=== PATIENT | female | born 1950 | race Caucasian/White ===

== ENCOUNTER 2018-09-30 06:37 | Day surgery (SDC) | payer BC, MEDICARE ==
[2018-09-30] MEDS ORDERED: Midazolam 1 MG/ML 2 ML SDV IV ONE (06:38)
[2018-09-30] MEDS ORDERED: Propofol 200 MG/20 ML SDV IV ONE (06:38)
[2018-09-30] MEDS ORDERED: Sodium Chloride 0.9% 10 ML Syringe FLUSH PRN (06:45)
[2018-09-30] MEDS ORDERED: Lactated Ringers 1,000 ML IV SCH (06:45)
--- NOTE | 2018-09-30 08:15 | PCM.OPNOTE ---
- General Post-Op/Procedure Note Date of Surgery/Procedure: 09/30/18 Operative Procedure(s): c scope with bx Findings: diverticulum of ascending colon solitary polyp transverse colon Pre Op Diagnosis: screening Post-Op Diagnosis: diverticulum of ascending colon solitary. polyp transverse colon Anesthesia Technique: MAC Primary Surgeon: Lucien Gonzalez Anesthesia Provider: Manuela Rubin Pathology: transverse colon polyp Complications: None Condition: Good Free Text/Narrative:: see dictation
--- NOTE | 2018-09-30 08:23 | OR ---
DATE OF OPERATION: 09/30/2018 SURGEON: Lucien Gonzalez MD PROCEDURE PERFORMED: Colonoscopy with cold forceps biopsy. PREOPERATIVE DIAGNOSIS: Need for colon cancer screening. POSTOPERATIVE DIAGNOSIS: Diverticulum of the ascending colon and questionable polyp of the transverse colon. INDICATIONS FOR PROCEDURE: This is a 67-year-old white female, who presents for screening colonoscopy, it was offered and accepted same. DESCRIPTION OF OPERATION: After an excellent IV sedation was administered, digital rectal exam was performed. No marked abnormality was noted. Flexible colonoscope was inserted and advanced to the cecum. Prep was excellent. The following findings were noted. Ascending colon, just distal to the ileocecal valve, a single diverticulum was noted, otherwise unremarkable. Transverse colon: At the distal transverse colon, there was a patch that appeared to be consistent with early adenomatous changes. This had measured approximately 3 mm in size, biopsied with the cold biopsy forceps and submitted. Descending colon was unremarkable. Sigmoid was unremarkable. Rectum and anus, unremarkable. Colon was deflated as the scope was removed. The patient tolerated the procedure well and was taken to recovery in good condition. Results by letter. /[id number] /MODL
== END 2018-09-30 09:18 | disposition home or self-care (01) ==
LOC: FB.SDS 06:37
PROVIDERS: ATTEND Surgery
DX: Z12.11 Encounter for screening for malignant neoplasm of colon (principal); D12.3 Benign neoplasm of transverse colon; K57.30 Diverticulosis of large intestine without perforation or abscess without bleeding; I10 Essential (primary) hypertension; E78.00 Pure hypercholesterolemia, unspecified; C34.91 Malignant neoplasm of unspecified part of right bronchus or lung; M19.90 Unspecified osteoarthritis, unspecified site; Z88.0 Allergy status to penicillin; Z88.5 Allergy status to narcotic agent; Z88.8 Allergy status to other drugs, medicaments and biological substances; Z91.048 Other nonmedicinal substance allergy status; Z87.891 Personal history of nicotine dependence; Z79.82 Long term (current) use of aspirin; Z79.899 Other long term (current) drug therapy
CPT/HCPCS: 00812; 45380; 88305; J2250; J2704; J7120

== ENCOUNTER 2024-04-24 09:53 | Emergency (ER) | payer BC, MEDICARE ==
[2024-04-24] MEDS: amLODIPine 5 MG Tab PO ONE (10:13)
[2024-04-24] MEDS: cloNIDine 0.1 MG Tab PO ONE (10:14)
== END 2024-04-24 11:04 | disposition home or self-care (01) ==
LOC: FB.ED 09:53
DX: I16.9 Hypertensive crisis, unspecified (principal); I10 Essential (primary) hypertension; E78.00 Pure hypercholesterolemia, unspecified; Z86.73 Personal history of transient ischemic attack (TIA), and cerebral infarction without residual deficits; Z90.710 Acquired absence of both cervix and uterus; Z88.0 Allergy status to penicillin; Z88.8 Allergy status to other drugs, medicaments and biological substances; Z88.5 Allergy status to narcotic agent; Z91.041 Radiographic dye allergy status; Z91.040 Latex allergy status; Z79.51 Long term (current) use of inhaled steroids; Z79.82 Long term (current) use of aspirin; Z79.899 Other long term (current) drug therapy
CPT/HCPCS: 99283; 99284; A9270-GY

== ENCOUNTER 2024-11-29 17:29 | Emergency (ER) | payer MEDICARE ==
[2024-11-29 17:59] LABS: BLOOD UREA NITROGEN,BUN 44 mg/dL (7-18); CARBON DIOXIDE,CO2 30 mmol/L (21-32); CHLORIDE,CL 98 mmol/L (100-110); CREATININE 2.5 mg/dL (0.55-1.02); EST CRCL DRUG DOSING (CG) 11.03 mL/min; ESTIMATED GFR 20 mL/min (>60); GLUCOSE RANDOM 97 mg/dL (80-116); POTASSIUM,K 5.7 mmol/L (3.5-5.3); SODIUM,NA 134 mmol/L (135-145)
[2024-11-29] MEDS: Sodium Chloride 0.9% 10 ML Syringe FLUSH PRN (18:22)
[2024-11-29] MEDS: Albuterol 0.083% 2.5 MG/3 ML Neb Soln NEB ONE (18:22)
[2024-11-29 19:17] LABS: BLOOD UREA NITROGEN,BUN 40 mg/dL (7-18); CARBON DIOXIDE,CO2 30 mmol/L (21-32); CHLORIDE,CL 103 mmol/L (100-110); EST CRCL DRUG DOSING (CG) 12.53 mL/min; ESTIMATED GFR 23 mL/min (>60); GLUCOSE RANDOM 84 mg/dL (80-116); POTASSIUM,K 5.2 mmol/L (3.5-5.3); SODIUM,NA 137 mmol/L (135-145)
[2024-11-29 19:19] LABS: CREATININE 2.2 mg/dL (0.55-1.02)
== END 2024-11-29 19:50 | disposition home or self-care (01) ==
LOC: FB.ED 17:29
DX: E87.5 Hyperkalemia (principal); E86.0 Dehydration; N17.9 Acute kidney failure, unspecified; I10 Essential (primary) hypertension; E78.00 Pure hypercholesterolemia, unspecified; J44.9 Chronic obstructive pulmonary disease, unspecified; Z90.710 Acquired absence of both cervix and uterus; Z87.891 Personal history of nicotine dependence; Z88.0 Allergy status to penicillin; Z88.5 Allergy status to narcotic agent; Z88.8 Allergy status to other drugs, medicaments and biological substances; Z91.040 Latex allergy status; Z79.51 Long term (current) use of inhaled steroids; Z79.82 Long term (current) use of aspirin; Z79.899 Other long term (current) drug therapy
CPT/HCPCS: 36415; 80048; 93010; 94640; 96374; 99284; 99285; A9270; J7030

== ENCOUNTER 2025-05-29 01:53 | Emergency (ER) | payer MEDICARE ==
[2025-05-29] MEDS ORDERED: Propofol 200 MG/20 ML SDV IV ONE (01:54)
[2025-05-29] MEDS ORDERED: Rocuronium 100 MG/10 ML MDV IV ONE (01:54)
[2025-05-29] MEDS ORDERED: Midazolam 1 MG/ML 2 ML SDV IV ONE (01:54)
[2025-05-29] MEDS ORDERED: fentaNYL 100 MCG/2 ML SDV IV ONE (01:54)
[2025-05-29 02:57] LABS: MEAN PLATELET VOLUME 7.3 fL (7.1-12.4); PLATELET COUNT,PLT 255 x10(3)uL (151-488); RED BLOOD CELL COUNT 3.74 x10(6)uL (3.60-5.20); RED CELL DISTRIBUTION WIDTH 15.9 % (12.3-16.5); WHITE BLOOD CELL COUNT,WBC 10.0 x10-3/uL (3.0-10.3)
[2025-05-29 03:05] LABS: BLOOD UREA NITROGEN,BUN 30 mg/dL (7-18); CARBON DIOXIDE,CO2 32 mmol/L (21-32); CHLORIDE,CL 97 mmol/L (100-110); CREATININE 1.6 mg/dL (0.55-1.02); ESTIMATED GFR 34 mL/min (>60); GLUCOSE RANDOM 149 mg/dL (80-116); POTASSIUM,K 4.7 mmol/L (3.5-5.3); SODIUM,NA 139 mmol/L (135-145)
[2025-05-29 03:11] LABS: A/G RATIO 0.7; ASPARTATE AMNIOTRANSFERASE,AST 24 IU/L (5-25); BILIRUBIN TOTAL 0.3 mg/dL (0.1-1.3); PROTEIN TOTAL,TP 6.8 g/dL (6.0-8.0)
[2025-05-29 03:12] LABS: ALANINE AMINOTRANSFERASE,ALT < 6 U/L (12-36)
[2025-05-29 03:36] LABS: LYMPHOCYTES PERCENT MAN 3 % (13-37); MONOCYTES PERCENT MAN 9 % (4-12); SEG NEUTROPHILS PERCENT MAN 88 % (46-82)
[2025-05-29 03:41] LABS: INFLUENZA A NAA NEGATIVE (NEGATIVE); INFLUENZA B NAA NEGATIVE (NEGATIVE); RESPIRATORY SYNCYTIAL VIR NAA NEGATIVE (NEGATIVE)
[2025-05-29 03:49] LABS: CORONAVIRUS COVID-19 NAA NEGATIVE (NEGATIVE)
[2025-05-29] MEDS: Naloxone 0.4 MG/ML SDV ONE (05:12)
[2025-05-29] MEDS: Naloxone 0.4 MG/ML SDV IVPUSH ONE (05:15)
[2025-05-29 05:42] LABS: BASE EXCESS ARTERIAL,POC -6 mmol/L (-2 - 3+); HCO3 ARTERIAL,POC 23 mmol/L (21-28); O2 SATURATION ARTERIAL,POC 96.5 % (94-98); PO2 ARTERIAL,POC 109 mmHg (83-108)
[2025-05-29 06:14] LABS: BLOOD UREA NITROGEN,BUN 28 mg/dL (7-18); CARBON DIOXIDE,CO2 27 mmol/L (21-32); CHLORIDE,CL 103 mmol/L (100-110); CREATININE 1.6 mg/dL (0.55-1.02); ESTIMATED GFR 34 mL/min (>60); GLUCOSE RANDOM 155 mg/dL (80-116); POTASSIUM,K 4.8 mmol/L (3.5-5.3); SODIUM,NA 138 mmol/L (135-145)
[2025-05-29 06:20] LABS: BASE EXCESS VENOUS,POC -4 mmol/L (-2 - 3+); PCO2 VENOUS,POC 63 mmHg (41-51); PH VENOUS,POC 7.21 pH Units (7.32-7.43)
[2025-05-29] MEDS ORDERED: Sodium Chloride 0.9% 10 ML Syringe FLUSH PRN (07:40)
[2025-05-29 08:15] LABS: BASE EXCESS VENOUS,POC -4 mmol/L (-2 - 3+); PCO2 VENOUS,POC 66 mmHg (41-51); PH VENOUS,POC 7.19 pH Units (7.32-7.43)
[2025-05-29 08:15] LABS: GLUCOSE,URINE NORMAL (NORMAL); OCCULT BLOOD,URINE NEGATIVE (NEGATIVE)
[2025-05-29 08:19] LABS: APPEARANCE,URINE CLEAR (CLEAR); SQUAMOUS EPITHELIAL CELLS,UR OCCASIONAL (NS,R,O)
[2025-05-29] MEDS ORDERED: methylPREDNISolone Sodium Succinate 125 MG/2 ML SDV IVPUSH ONE (10:40)
[2025-05-29] MEDS: methylPREDNISolone Sodium Succinate 40 MG/1 ML SDV IVPUSH ONE (10:58)
[2025-05-29] MEDS ORDERED: Norepinephrine Bit/D5W Premix 4 MG/250 ML BAG ONE (12:12)
[2025-05-29] MEDS ORDERED: Norepinephrine Bit/D5W Premix 4 MG/250 ML BAG IV SCH (12:15)
== END 2025-05-29 12:29 ==
LOC: FB.ED 01:53
DX: J96.02 Acute respiratory failure with hypercapnia (principal); J44.1 Chronic obstructive pulmonary disease with (acute) exacerbation; G93.89 Other specified disorders of brain; E87.29 Other acidosis; E88.09 Other disorders of plasma-protein metabolism, not elsewhere classified; R41.0 Disorientation, unspecified; F17.200 Nicotine dependence, unspecified, uncomplicated; R10.32 Left lower quadrant pain; R94.6 Abnormal results of thyroid function studies; R94.4 Abnormal results of kidney function studies; E78.00 Pure hypercholesterolemia, unspecified; I10 Essential (primary) hypertension; E86.0 Dehydration; Z79.899 Other long term (current) drug therapy; Z79.82 Long term (current) use of aspirin; Z88.8 Allergy status to other drugs, medicaments and biological substances; Z88.0 Allergy status to penicillin; Z91.041 Radiographic dye allergy status; Z91.040 Latex allergy status; Z88.5 Allergy status to narcotic agent; Z79.51 Long term (current) use of inhaled steroids
CPT/HCPCS: 31500; 36415; 43752; 51702; 70450; 70450-26; 71045; 71045-26; 74176; 80048; 80053; 81001; 82803; 83605; 83735; 84443; 84484; 85025; 86140; 87040; 87637; 93005; 93010; 96361; 96374; 96375; 96376; 99152; 99285; 99285-25; A9270-GY; J0696; J2250; J2270; J2312; J2704; J2765; J2919; J3010; J7030